=== PATIENT | male | born 1990 | race African-American/Black ===

== ENCOUNTER 2025-05-03 13:04 | Outpatient (CLI) | payer OTHER ==
--- NOTE | 2025-05-03 14:10 | DVH ---
EXAM: CT HEAD WITHOUT CONTRAST INDICATION: SEIZURE WORKUP TECHNIQUE: CT of the head without intravenous contrast. Radiation Dose Information: CT Dose: CTDI volume is 66.21 mGy. Dose-length product is 1193.53 mGy*cm The dose indicators for CT are the volume Computed Tomography (CT) Dose Index (CTDIvol) and the Dose Length Product (DLP), and are measured in units of mGy and mGy-cm, respectively. These indicators are not patient dose, but values generated from the CT scanner acquisition factors. The report includes radiation exposure data for exposures received during this examination. COMPARISON: None FINDINGS: There is no evidence of acute intracranial hemorrhage, extra-axial collection, mass effect, midline s hift, herniation or hydrocephalus. The ventricles, sulci and cisterns are age appropriate. The nails-white differentiation is intact. Patchy periventricular and subcortical white matter hypoattenuation is nonspecific but may be related to small vessel ischemic disease. The visualized paranasal sinuses and mastoid air cells are clear. The surrounding soft tissues and osseous structures are unremarkable. IMPRESSION: No acute intracranial abnormality.
== END 2025-05-03 17:00 | disposition home or self-care (01) ==
LOC: CT 13:04 → EEVIPCON 13:04 → CT 17:00
DX: R56.9 Unspecified convulsions (principal)
CPT/HCPCS: 70450